=== PATIENT | female | born 1965 | race American Indian/Alaskan Native ===

== ENCOUNTER 2019-01-26 06:49 | Day surgery (SDC) | payer OTHER ==
[2019-01-26] MEDS ORDERED: LACTATED RINGERS 1,000 ML IV SCH (07:00)
--- NOTE | 2019-01-26 07:39 | Anesthesia Day of Surgery ---
Anesthesia Day of Surgery - Day of Surgery Patient Examined: Yes Patient H&P Reviewed: Yes Patient is NPO: Yes
--- NOTE | 2019-01-26 07:39 | Anesthesia Consultation ---
Anesthesia Consult and Med Hx Date of service: 01/26/19 - Airway Anesthetic Teeth Evaluation: Good ROM Head & Neck: Adequate Mental/Hyoid Distance: Adequate Mallampati Class: Class II Intubation Access Assessment: Good - Pulmonary Exam CTA: Yes - Cardiac Exam Cardiac Exam: RRR - Pre-Operative Health Status ASA Pre-Surgery Classification: ASA3 Proposed Anesthetic Plan: General - Pulmonary Hx Smoking: No Hx Sleep Apnea: Yes (SLIGHT-DOES NOT USE MACHINE ANYMORE) - Cardiovascular System Hx Hypertension: Yes - Central Nervous System Hx Back Pain: Yes (NECK PAIN ALSO ALL OVER) Hx Psychiatric Problems: No - Other Systems Hx Alcohol Use: Yes Hx Substance Use: No (OCC. WINE OR WHISKEY) Hx Cancer: No (LEFT BREAST CALCIFICATION) - Additional Comments Anesthesia Medical History Comments: Hx of HTN, Fibromyalgia, RA for breast biopsy
[2019-01-26] MEDS ORDERED: XYLOCAINE 1% 20 mL ONE ×2 (07:41→09:18)
[2019-01-26] MEDS ORDERED: VERSED IV NR (08:00)
[2019-01-26] MEDS ORDERED: DILAUDID IV PRN (08:02)
[2019-01-26] MEDS ORDERED: MARCAINE 0.25% INFILTRATI ONE ×3 (09:18→10:06)
[2019-01-26] MEDS ORDERED: DIPRIVAN 10 MG/ML IV ONE (09:27)
[2019-01-26] MEDS ORDERED: SUBLIMAZE ONE (09:27)
[2019-01-26] MEDS ORDERED: VERSED ONE (09:27)
[2019-01-26] MEDS ORDERED: XYLOCAINE MPF 2% ONE (09:30)
[2019-01-26] MEDS ORDERED: DECADRON ONE (09:49)
[2019-01-26] MEDS ORDERED: ZOFRAN ONE ×2 (09:49→11:14)
[2019-01-26] MEDS ORDERED: REGLAN ONE (09:49)
[2019-01-26] MEDS ORDERED: ANCEF/STERILE WATER 2 GM/20 ML 2 GM/20 ML SYRINGE IV NR (10:00)
--- NOTE | 2019-01-26 10:03 | Mammography Report ---
Left breast mammographic guided wire localization INDICATION: Recent biopsy of group microcalcifications with pathology of radial scar COMPARISON: Left diagnostic mammogram 12/01/2018, biopsy and postbiopsy left mammography and specimen radiographs 12/03/2018 The procedure was discussed at length with the patient in advance. Imaging shows biopsy clip appearin g to be in the area of right upper calcifications. Patient does not report pertinent allergies. Timeo ut was performed. Using aseptic technique and local anesthesia, with a lateral approach using a Kopan 's type wire needle assembly, the area of recent biopsy was localized successfully. Site was secured. Patient tolerated the procedure well and was sent to the operating suite in good condition. IMPRESSION: Successful mammographic guided left breast wire localization Signer Name: Bal Mercado MD Signed: 01/26/2019 9:59 AM Workstation Name: [id number]
[2019-01-26] MEDS ORDERED: NACL 0.9% IR ONE (10:07)
[2019-01-26] MEDS ORDERED: LACTATED RINGERS 1,000 ML ONE (11:12)
[2019-01-26] MEDS ORDERED: XYLOCAINE 1% 20 mL INFILTRATI ONE (11:14)
--- NOTE | 2019-01-26 11:23 | Mammography Report ---
Left breast tissue specimen radiograph INDICATION: Excisional procedure today The specimen contains the end of the wire and the area of recent biopsy including the clip. Signer Name: Bal Mercado MD Signed: 01/26/2019 11:18 AM Workstation Name: [id number]
--- NOTE | 2019-01-26 11:46 | Operative Report ---
Operative Report Operative Report: Operative Report: Date of Service: January 24, 2019 Preoperative diagnosis: Left breast radial scar of the upper outer quadrant Postoperative diagnosis: Same Procedure: Left breast radial scar excisional biopsy of the upper outer quadrant Surgeon: Nidia Whiteside M.D. Leaf Sucker Operator: Lolis Derw M.D. Anesthesia: General Findings: Left breast radial scar excisional biopsy; radiograph specimen with clip and wire present Complications: None Drains: None Estimated blood loss: Minimal Disposition: PACU in good condition Indication for operative procedure: This is a 34-year-old lady with recent abnormal left mammogram with suspicious calcifications. Recent stereotactic bi opsy findings of radial scar. Recommendations are for excisional biopsy to rule out malignancy given benign high risk breast cancer lesion. Patient wished to proceed with the above procedure. The patient was procedure in detail: Radiology placed wire to localize area of concern at location of clip. The patient was taken to the operating room and was laid supine. General anesthesia was administered. The left breast was prepped and draped in the normal sterile operative fashion. Timeout was performed. Ultrasound was used to localize clip. The wire was identified. A lateral breast incision was made around the 3:00 position with a 15 blade knife with dissection taken down to the subcutaneous tissues. First began raising of the lateral flap with dissection taken down posteriorly followed by raising of the anterior flap with removal of the wire from the skin. Then the medial, superior and inferior flaps were raised and taken down posteriorly. The wire was not encountered. The area of concern was then removed with the aid of the Bovie cautery. The specimen was sent to radiology with radiograph specimen with clip and wire present and then sent to pathology. Hemostasis was obtained using the Bovie cautery. Breast cavity was anesthesized with 1% lidocaine and quarter percent marcaine. The breast cavity was irrigated and suctioned. The deep breast tissues were approximated and closed using interrupted 3-0 Vicryl and skin brought together and closed using a running 4-0 Monocryl followed by dermabond. She tolerated surgery very well and was awakened from anesthesia without any complication and transported to PACU in good condition.
--- NOTE | 2019-01-26 12:01 | Short Stay Summary ---
Short Stay Documentation Date of service: 01/26/19 - History H&P: obtained from office - Allergies and Medications Current Medications: Allergies acetaminophen [From Percocet] Adverse Reaction (Intermediate, Verified 01/20/19 16:26) Rash CAUSES RASH AND ITCHING oxycodone [From Percocet] Adverse Reaction (Intermediate, Verified 01/20/19 16:26) Rash CAUSES RASH AND ITCHING Penicillins Adverse Reaction (Intermediate, Verified 01/20/19 16:27) Rash CAUSES RASH AND ITCHING Sulfa (Sulfonamide Antibiotics) Adverse Reaction (Intermediate, Verified 01/20/19 16:26) Rash CAUSES RASH AND ITCHING Home Medications Medication Instructions Recorded Confirmed Last Taken Type Alive Once Daily Women 50 Plus 1 mg PO DAILY 01/20/19 01/20/19 01/25/19 16:00 History Ibuprofen/Famotidine [Duexis 800 mg PO PRN 01/20/19 01/20/19 01/25/19 16:00 History 800-26.6 mg Tablet] NIFEdipine [Nifedipine ER] 60 mg PO DAILY 01/20/19 01/20/19 01/25/19 16:00 History Olmesartan/Hydrochlorothiazide 40 mg PO DAILY 01/20/19 01/26/19 01/26/19 04:00 History [Olmesartan-Hctz 40-25 mg Tab] Vitamin B Complex 1 cap PO DAILY 01/20/19 01/20/19 01/25/19 16:00 History HYDROcodone/APAP 5-325 [[place] 1 each PO Q6HR PRN #8 tablet 01/26/19 Unknown Rx 5/325] Ibuprofen [Motrin 800 MG tab] 800 mg PO Q8HR PRN #21 tablet 01/26/19 Unknown Rx Active Medications Hydromorphone HCl (Dilaudid) 0.5 mg IV Q10MIN PRN PRN Reason: Pain , Severe (7-10) Stop: 01/26/19 16:00 Lactated Ringer's (Lactated Ringers) 1,000 mls @ 100 mls/hr IV DIRECT LARRY Last Admin: 01/26/19 08:45 Dose: 100 mls/hr Documented by: Midazolam HCl (Versed) 2 mg IV PREOP NR Stop: 01/26/19 23:59 Last Admin: 01/26/19 09:05 Dose: 2 mg Documented by: - Brief post op/procedure progress note Date of procedure: 01/26/19 Pre-op diagnosis: Left Breast Radial Scar Post-op diagnosis: same Procedure: Left Needle Localized Excision Anesthesia: MAC Surgeon: JUANCHO HAYES Ceramics Technician: SHRUTHI GALLEGOS Estimated blood loss: minimal Pathology: list (Left breast tissue with localizing needle) Specimen disposition: to lab Condition: stable - Disposition Condition at discharge: Good Disposition: [id number] IP Short Stay Discharge Plan Follow up with: LETTY WISE MD [Primary Care Provider] - 7 Days Prescriptions: Ibuprofen [Motrin 800 MG tab] 800 mg PO Q8HR PRN #21 tablet PRN Reason: Pain , Severe (7-10) HYDROcodone/APAP 5-325 [[place] 5/325] 1 each PO Q6HR PRN #8 tablet PRN Reason: Pain
[2019-01-26] MEDS ORDERED: NORCO 5/325 PO PRN (12:21)
[2019-01-26] MEDS ORDERED: NORCO 5/325 ONE (12:25)
[2019-01-26 12:42] VITALS: BP 127/88
--- NOTE | 2019-01-26 14:18 | Post Anesthesia Evaluation ---
- Post Anesthesia Evaluation Patient Participated: Yes Airway Patent: Yes Stable Respiratory Function: Yes Nausea/Vomiting: No Temp > 96.8F: Yes Pain Manageable: Yes Adequeate Hydration: Yes Anesthesia Complications: No
== END 2019-01-26 13:04 | disposition short-term general hospital (02) ==
LOC: OR 06:49
PROVIDERS: ATTEND Surgery
DX: D24.2 Benign neoplasm of left breast (principal); N60.92 Unspecified benign mammary dysplasia of left breast; N60.12 Diffuse cystic mastopathy of left breast; R92.0 Mammographic microcalcification found on diagnostic imaging of breast; I10 Essential (primary) hypertension; M79.7 Fibromyalgia; M19.90 Unspecified osteoarthritis, unspecified site; E78.5 Hyperlipidemia, unspecified; G47.30 Sleep apnea, unspecified; K21.9 Gastro-esophageal reflux disease without esophagitis; Z88.2 Allergy status to sulfonamides; Z88.0 Allergy status to penicillin; Z88.8 Allergy status to other drugs, medicaments and biological substances; Z79.899 Other long term (current) drug therapy; Z98.890 Other specified postprocedural states; Z90.710 Acquired absence of both cervix and uterus; Z72.89 Other problems related to lifestyle
CPT/HCPCS: 19125; 19281; 76098; 88307; 88341; 88342; J0690; J1100; J1170; J2250; J2405; J2704; J2765; J3010; J7120

== ENCOUNTER 2019-03-11 08:17 | Outpatient (CLI) | payer OTHER ==
--- NOTE | 2019-03-12 15:02 | Magnetic Resonance Report ---
BILATERAL BREAST MR WITHOUT AND WITH GADOLINIUM INDICATION: Status post surgical excision of a radial scar on 01/26/2019. Pathology revealed a small focus of atypical ductal hyperplasia. COMPARISONS: 11/21/2018 and 12/03/2018 mammograms TECHNIQUE: Axial 1.0 mm T1 without, axial high-resolution 2.0 mm T2 and axial 1.0 mm dynamic vibrant high-resolution postcontrast T1 fat saturation sequences on a 1.5 Ariana magnet. The examination was p erformed with an 8-channel dedicated [place] breast coil. Post-processing with CAD and subtraction was performed on an [employer] workstation. 15.0 cc of MultiHance was injected without incident for the c ontrast portion of the exam. Consent was obtained prior to the administration of the contrast. FINDINGS: RIGHT BREAST: Minimal background parenchymal enhancement. No mass or suspicious enhancement. No suspi cious lymph nodes. LEFT BREAST: Mild background parenchymal enhancement. An oval slightly irregular surgical cavity in t he upper outer quadrant measures 2.8 x 2.4 x 2.7 cm. Benign enhancement at the margin of the postop s eroma. No mass or suspicious enhancement of the left breast. No suspicious lymph nodes. IMPRESSION: 1. Benign postsurgical changes in the left breast with a 2.8 cm postop seroma. 2. No suspicious findings in either breast. 3. No suspicious lymph nodes. 4. Recommend routine mammographic screening. BI-RADS Category 2: Benign Signer Name: Tiburcio Simpson MD Signed: 03/12/2019 2:58 PM Workstation Name: [id number]
== END 2019-03-11 08:18 | disposition home or self-care (01) ==
LOC: SPVIMAG 08:17
PROVIDERS: ATTEND Surgery
DX: N60.82 Other benign mammary dysplasias of left breast (principal); R92.1 Mammographic calcification found on diagnostic imaging of breast; E78.5 Hyperlipidemia, unspecified; I10 Essential (primary) hypertension; K21.9 Gastro-esophageal reflux disease without esophagitis; M19.90 Unspecified osteoarthritis, unspecified site; Z72.89 Other problems related to lifestyle; Z90.710 Acquired absence of both cervix and uterus
CPT/HCPCS: A9577; C8908; 77049

== ENCOUNTER 2019-06-08 09:52 | Outpatient (CLI) | payer OTHER ==
--- NOTE | 2019-06-08 15:42 | Mammography Report ---
DIGITAL LEFT DIAGNOSTIC MAMMOGRAM WITH CAD, 06/08/2019 INDICATION: History of left breast cancer status post partial mastectomy 01/26/2019. TECHNIQUE: Digital left mammographic imaging was performed. This examination was interpreted with the benefit of Computer-aided Detection analysis. COMPARISON: 11/21/2018 Breast Density: The breast is heterogeneously dense, which may obscure small masses. FINDINGS: Upper outer benign postsurgical scar. No mass, suspicious architectural distortion or suspi cious calcifications. IMPRESSION: Benign postsurgical changes and no suspicious findings. Follow up recommendation: Routine BI-RADS Category 2: Benign. A "normal" or negative report should not discourage follow up or biopsy of a clinically significant f inding. A written summary of these findings will be mailed to the patient. The patient will be entered into a mammography reporting system which will generate a reminder letter for the patient's next appointmen t at the appropriate interval. According to the [employer], yearly mammograms are recommended starting at age 40 and continuing as long as a woman is in good health. Breast MRI is recommended for women with an vance roximately 20-25% or greater lifetime risk of breast cancer, including women with a strong family his tory of breast or ovarian cancer and women who have been treated for Hodgkin's disease. Signer Name: Tiburcio Simpson MD Signed: 06/08/2019 3:38 PM Workstation Name: [id number]
== END 2019-06-08 09:53 | disposition home or self-care (01) ==
LOC: SPVWC 09:52
PROVIDERS: ATTEND Surgery
DX: N60.82 Other benign mammary dysplasias of left breast (principal); Z85.3 Personal history of malignant neoplasm of breast; Z90.12 Acquired absence of left breast and nipple; Z98.890 Other specified postprocedural states

== ENCOUNTER 2020-12-08 09:26 | Outpatient (CLI) | payer OTHER ==
--- NOTE | 2020-12-08 10:33 | Mammography Report ---
DIGITAL SCREENING MAMMOGRAM WITH CAD, 12/08/2020 INDICATION: Routine screening mammography. TECHNIQUE: Digital bilateral 2D mammography was obtained in the craniocaudal and mediolateral obliq ue projections. This examination was interpreted with the benefit of Computer-Aided Detection analysi s. COMPARISON: 12/08/2019 FINDINGS: Breast Density: The breasts are heterogeneously dense, which may obscure small masses. There is no evidence of dominant mass, suspicious calcifications or architectural distortion in eithe r breast. IMPRESSION: Follow up recommendation: Routine yearly BI-RADS Category 1: Negative. A "normal" or negative report should not discourage follow up or biopsy of a clinically significant f inding. A written summary of these findings will be mailed to the patient. The patient will be entered into a mammography reporting system which will generate a reminder letter for the patient's next appointmen t at the appropriate interval. The [employer] recommends yearly mammograms starting at age 40 and continuing as l mandi as a woman is in good health. Breast MRI is recommended for women with an approximate 20-25% or greater lifetime risk of breast cancer, including women with a strong family history of breast or ova hilda cancer or who have been treated for Hodgkin's disease. Signer Name: Alexei Melgar MD Signed: 12/08/2020 10:28 AM Workstation Name: [id number]
== END 2020-12-08 09:27 | disposition home or self-care (01) ==
LOC: SPVWC 09:26
PROVIDERS: ATTEND Surgery
DX: Z12.31 Encounter for screening mammogram for malignant neoplasm of breast (principal)
CPT/HCPCS: 77067

== ENCOUNTER 2021-12-11 07:35 | Outpatient (CLI) | payer OTHER ==
--- NOTE | 2021-12-12 08:38 | Mammography Report ---
DIGITAL SCREENING MAMMOGRAM WITH CAD, 12/11/2021 CLINICAL INFORMATION / INDICATION: Routine screening mammography. TECHNIQUE: Digital bilateral 2D mammography was obtained in the craniocaudal and mediolateral obliqu e projections. This examination was interpreted with the benefit of Computer-Aided Detection analysis . COMPARISON: 12/08/2020, 12/08/2019, 06/08/2019 FINDINGS: Breast Density: The breasts are heterogeneously dense, which may obscure small masses. No dominant mass, suspicious calcifications, or architectural distortion in either breast. Post-surgical changes again noted in the left breast. Overall, there has been no significant interval change. IMPRESSION: No mammographic evidence of malignancy. Follow up recommendation: Routine yearly screening mammogram. BI-RADS Category 2: BENIGN. A "normal" or negative report should not discourage follow up or biopsy of a clinically significant f inding. A written summary of these findings will be mailed to the patient. The patient will be entered into a mammography reporting system which will generate a reminder letter for the patient's next appointmen t at the appropriate interval. The [employer] recommends yearly mammograms starting at age 40 and continuing as l mandi as a woman is in good health. Breast MRI is recommended for women with an approximate 20-25% or greater lifetime risk of breast cancer, including women with a strong family history of breast or ova hilda cancer or who have been treated for Hodgkin's disease. Signer Name: Renetta Juan MD Signed: 12/12/2021 8:34 AM Workstation Name: [id number]
== END 2021-12-11 07:36 | disposition home or self-care (01) ==
LOC: MAMMO 07:35
PROVIDERS: ATTEND Internal Medicine
DX: Z12.31 Encounter for screening mammogram for malignant neoplasm of breast (principal)
CPT/HCPCS: 77067